=== PATIENT | female | born 1970 | race Caucasian/White ===

== ENCOUNTER 2019-12-29 08:54 | Day surgery (SDC) | payer MEDICARE, MEDICAID ==
[2019-12-29] MEDS ORDERED: Propofol 200 MG/20 ML SDV ONE (09:19)
[2019-12-29] MEDS ORDERED: fentaNYL 100 MCG/2 ML SDV ONE (09:19)
[2019-12-29] MEDS ORDERED: Midazolam 1 MG/ML 2 ML SDV ONE (09:20)
[2019-12-29] MEDS ORDERED: Sodium Chloride 0.9% 1,000 ML IV SCH (09:45)
--- NOTE | 2020-01-01 08:43 | OR ---
DATE OF PROCEDURE: 12/29/2019 SURGEON: Kaleb Marino MD PROCEDURE: Colonoscopy. PREOPERATIVE DIAGNOSIS: Positive Cologuard test. POSTOPERATIVE DIAGNOSIS: Positive Cologuard test. FINDINGS: 1. Ascending colon polyp, approximately 1 cm, completely removed using hot snare wire device. 2. Descending colon polyp #1, completely removed using cold biopsy forceps. 3. Descending colon polyp #2, completely removed using cold biopsy forceps. COMPLICATIONS: None. EDUCATIONAL DIRECTOR: None. ANESTHESIA: MAC. RISKS: Risks, benefits, alternatives, and limitations including, but not limited to infection, bleeding, and perforation were explained to the patient, who wished to proceed. PROCEDURE IN DETAIL: The patient was placed in left lateral decubitus position. Digital rectal exam was performed without abnormality. Scope was introduced and advanced atraumatically to the ileocecal valve. A photo was taken. The scope was brought through the ascending colon, approximately 1 cm polyp was identified and completely removed using the hot snare wire device. No abnormal bleeding was noted. The scope was brought back through the remainder of the colon, and descending colon polyps #1 and #2 were completely removed using the cold biopsy snare device. No abnormalities on retroflexion. The patient tolerated the procedure well. Kaleb Marino MD /[id number]
== END 2019-12-29 13:08 | disposition home or self-care (01) ==
LOC: JP.SDS 08:54
PROVIDERS: ATTEND Surgery
DX: D12.2 Benign neoplasm of ascending colon (principal); D12.4 Benign neoplasm of descending colon; F17.200 Nicotine dependence, unspecified, uncomplicated; K21.9 Gastro-esophageal reflux disease without esophagitis; E11.9 Type 2 diabetes mellitus without complications
CPT/HCPCS: 45380; 45385; J2250; J2704; J3010; J7030; 88305

== ENCOUNTER 2020-12-27 10:02 | Emergency (ER) | payer MEDICARE, MEDICAID ==
[2020-12-27] MEDS ORDERED: HYDROmorphone 1 MG/ML Syringe IVPUSH ONE ×3 (10:03→12:07)
[2020-12-27] MEDS ORDERED: Ketorolac 30 MG/ML SDV IVPUSH ONE (10:03)
[2020-12-27] MEDS ORDERED: Lactated Ringers 1,000 ML IV ONE (10:04)
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
[2020-12-27] MEDS ORDERED: Ondansetron 4 MG/2 ML SDV IVPUSH ONE (10:53)
[2020-12-27] MEDS ORDERED: Lactated Ringers 500 ML IV ONE (11:43)
[2020-12-27] MEDS ORDERED: Bacitracin Oint 1 GM U/D Packet TOP ONE (12:08)
== END 2020-12-27 13:10 | disposition home or self-care (01) ==
LOC: JP.ED 10:02
DX: T20.20XA Burn of second degree of head, face, and neck, unspecified site, initial encounter (principal); M19.90 Unspecified osteoarthritis, unspecified site; E11.9 Type 2 diabetes mellitus without complications; Z79.82 Long term (current) use of aspirin; Z79.899 Other long term (current) drug therapy; X08.8XXA Exposure to other specified smoke, fire and flames, initial encounter; Y92.009 Unspecified place in unspecified non-institutional (private) residence as the place of occurrence of the external cause
CPT/HCPCS: 16020; 96374; 96375; 96376; 99283; J1170; J1885; J2405; J7120; 99284

== ENCOUNTER 2021-02-23 11:03 | Emergency (ER) | payer MEDICARE, MEDICAID ==
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
[2021-02-23] MEDS ORDERED: Ketorolac 30 MG/ML SDV IM ONE (11:56)
[2021-02-23] MEDS ORDERED: Albuterol 8 GM Inhaler INH ONE (11:59)
== END 2021-02-23 13:48 ==
LOC: JP.ED 11:03
DX: S16.1XXA Strain of muscle, fascia and tendon at neck level, initial encounter (principal); S29.012A Strain of muscle and tendon of back wall of thorax, initial encounter; U07.1 COVID-19; J40 Bronchitis, not specified as acute or chronic; E11.9 Type 2 diabetes mellitus without complications; F43.9 Reaction to severe stress, unspecified; Z79.899 Other long term (current) drug therapy; Z79.82 Long term (current) use of aspirin; X58.XXXA Exposure to other specified factors, initial encounter
CPT/HCPCS: 94640; 96372; 99285; A9270; J1885; U0002

== ENCOUNTER 2021-03-14 14:31 | Emergency (ER) | payer MEDICARE, MEDICAID ==
--- NOTE | 2021-03-14 15:43 | EDM.PDOC ---
ED HPI GENERAL MEDICAL PROBLEM - General Chief Complaint: Neck Problem Stated Complaint: NECK PAIN/CRAMPING ARMS Time Seen by Provider: 03/14/21 15:43 Source of Information: Reports: Patient, RN Notes Reviewed History Limitations: Reports: No Limitations - History of Present Illness INITIAL COMMENTS - FREE TEXT/NARRATIVE: Luisa presents today for ongoing neck pain, sore muscles and soreness to her upper back. She also states she is homeless, its is raining outside and she would like some food. She denies any new injury or trauma. She denies fever, chills, cough, headache, nausea, vomiting, diarrhea or constipation. - Related Data Allergies Allergy/AdvReac Type Severity Reaction Status Date / Time No Known Allergies Allergy Verified 03/14/21 14:48 Home Meds: Home Meds Aspirin [Halfprin] 81 mg PO DAILY 12/27/19 [History] Calcium Carbonate 600 mg PO DAILY 12/27/19 [History] Cyanocobalamin (Vitamin B-12) [Vitamin B-12] 1,000 mcg PO DAILY 12/27/19 [History] Ferrous Sulfate 325 mg PO DAILY 12/27/19 [History] Mirtazapine [Remeron] 15 mg PO BEDTIME 12/27/19 [History] Omeprazole 20 mg PO BEDTIME 12/27/19 [History] Sennosides [Senna Lax] 2 tab PO DAILY 12/27/19 [History] Therapeutic Multi Vitamin 1 tab PO BID 12/27/19 [History] Vitamin B Complex [B Complex] 1 each PO DAILY 12/27/19 [History] atorvaSTATin [Lipitor] 20 mg PO BEDTIME 12/27/19 [History] hydrOXYzine HCL [Atarax] 25 - 50 mg PO Q8H PRN 12/27/19 [History] metFORMIN [Glucophage] 500 mg PO WITHDINNER 12/27/19 [History] traZODone 100 mg PO BEDTIME 12/27/19 [History] valACYclovir HCl [Valtrex] 500 mg PO DAILY 12/27/19 [History] Acamprosate [Campral] 2 tab PO TID 12/27/20 [History] Vortioxetine Hydrobromide [Trintellix] 1 tab PO DAILY 12/27/20 [History] Albuterol Sulfate [Albuterol Sulfate Hfa] 18 gm IH Q4H PRN 30 Days #1 [email or web address] 02/23/21 [Rx] Past Medical History Cardiovascular History: Reports: High Cholesterol Respiratory History: Reports: Bronchitis, Recurrent Musculoskeletal History: Reports: Arthritis Psychiatric History: Reports: Anxiety, Depression Endocrine/Metabolic History: Reports: Diabetes, Type II - Infectious Disease History Infectious Disease History: Reports: Chicken Pox - Past Surgical History GI Surgical History: Reports: Bariatric Procedure Female Surgical History: Reports: Hysterectomy Endocrine Surgical History: Reports: None Musculoskeletal Surgical History: Reports: None Social & Family History - Family History Cardiac: Reports: Arrhythmia, Heart Failure Endocrine/Metabolic: Reports: Diabetes, type II Oncologic: Reports: Colon, Prostate - Tobacco Use Tobacco Use Status *Q: Current Every Day Tobacco User Years of Tobacco use: 35 Packs/Tins Daily: 1 - Caffeine Use Caffeine Use: Reports: Coffee, Energy Drinks, Soda - Recreational Drug Use Recreational Drug Use: Yes Drug Use in Last 12 Months: Yes Recreational Drug Type: Reports: Marijuana/Hashish Recreational Drug Use Frequency: Rarely ED ROS GENERAL - Review of Systems Review Of Systems: See Below Constitutional: Reports: No Symptoms HEENT: Reports: No Symptoms Respiratory: Reports: No Symptoms Cardiovascular: Reports: No Symptoms Endocrine: Reports: No Symptoms GI/Abdominal: Reports: No Symptoms : Reports: No Symptoms Musculoskeletal: Reports: Neck Pain (pain and soreness going to her upper back. ) Skin: Reports: No Symptoms Neurological: Denies: Confusion, Dizziness, Headache, Numbness, Paresthesia, Seizure, Syncope, Tingling, Tremors, Trouble Speaking, Difficulty Walking, Weakness, Gait Disturbance Psychiatric: Reports: No Symptoms Hematologic/Lymphatic: Reports: No Symptoms Immunologic: Reports: No Symptoms ED EXAM, UPPER BACK/NECK PAIN - Physical Exam Exam: See Below Exam Limited By: No Limitations General Appearance: Alert, WD/WN, No Apparent Distress, Other Eye Exam: Bilateral Eye: Normal Inspection, PERRL Ears Exam: Normal External Exam, Normal Canal, Hearing Grossly Normal, Normal TM s Nose Exam: Normal Mucousa, No Blood. No: Nasal Deformity, Nasal Discharge, Nasal Swelling, Nasal Tenderness, Nasal Ecchymosis Throat/Mouth Exam: Normal Inspection, Normal Lips, Normal Gums, Normal Oropharynx, Normal Voice, No Airway Compromise, Dental Decay Head Exam: Atraumatic, Normocephalic. No: Scalp Swelling, Scalp Hematoma, Scalp Tenderness, Facial Abrasions, Facial Ecchymosis, Facial Swelling, Facial Tenderness, Sinus Tenderness Neck Exam: Full Range of Motion, Normal Alignment, Normal Inspection, Muscle Spasm (to right cervical muscles), Paraspinous Muscle Tender. No: Spinous Processes Tender Nexus Criteria: No: Posterior, Midline Cervical Tenderness, Evidence of Intoxication, Altered Level of Consciousness, Focal Neurological Deficit, Painful Distraction Injuries Cardiovascular/Respiratory: Regular Rate, Rhythm, No M/R/G, Normal Peripheral Pulses, Normal Breath Sounds, No Respiratory Distress. No: Tachycardia, Murmur, Rales, Rhonchi, Accessory Muscle uUe, Wheezing GI/Abdominal: Normal Bowel Sounds, Soft, Non-Tender, No Organomegaly, No Distention, No Mass (Female) Exam: Deferred Rectal (Female) Exam: Deferred Back Exam: Normal Inspection, Full Range of Motion, Muscle Spasm (right trapezius). No: CVA Tenderness (R), CVA Tenderness (L), Paraspinal Tenderness, Vertebral Tenderness Extremities: Normal Inspection, Normal Range of Motion, Non-Tender, No Pedal Edema, Normal Capillary Refill Neurologic: No Motor/Sensory Deficits, Alert, Normal Mood/Affect, Oriented x 3 DTR: 4+: Bicep (R), Bicep (L), Patella (R), Patella (L) Psychiatric: Normal Affect, Normal Mood Skin Exam: Normal Color, Warm/Dry Lymphatic: No Adenopathy Course - Vital Signs Last Recorded V/S: Last Vital Signs Temp 36.1 C 03/14/21 14:59 Pulse 75 03/14/21 14:59 Resp 18 03/14/21 14:59 BP 128/87 03/14/21 14:59 Pulse Ox 100 03/14/21 14:59 - Orders/Labs/Meds Meds: Medications Discontinued Medications Generic Name Dose Route Start Last Admin Trade Name Freq PRN Reason Stop Dose Admin Ketorolac Tromethamine 30 mg 03/14/21 16:01 03/14/21 16:18 Ketorolac 30 Mg/Ml Sdv IM 03/14/21 16:02 30 mg ONETIME ONE Administration - Re-Assessments/Exams Free Text/Narrative Re-Assessment/Exam: 03/14/21 16:03 Discussed care of chronic pain with patient. She is advised to follow up with her primary, continue her physical therapy. We will try use fo baclofen and diclofenac for her pain. Luisa requested a meal tray stating she was hungry. She was advised we could provide a snack, she chose pudding, applesauce and water. Patient advised to work with local housing for an apartment. Patient verbalized understanding. Departure - Departure Time of Disposition: 16:13 Disposition: Home, Self-Care 01 Condition: Good Clinical Impression: Muscle strain of upper back, Neck muscle strain - Discharge Information Instructions: Muscle Strain, [id number] Referrals: PCP,None [Primary Care Provider] - Forms: ED Department Discharge Additional Instructions: You have been evaluated and treated for ongoing and chronic neck and upper back pain. Stop use of methocarbamol and ibuprofen. Start use of baclofen 10 mg by mouth every 8 hours while awake for muscle spasms/pain. Take diclofenac 50mg by mouth in the morning and prior to bed for pain. You can also take acetaminophen (tylenol) 650mg by mouth three to four times a day for pain. Continue your use of topicals as directed. Follow up with your primary in 7 to 10 days for a recheck, you may need to see pain management or neurology if this is appropriate. Return for any worsening, issues or concerns. Sepsis Event Note (ED) - Evaluation Sepsis Screening Result: No Definite Risk - Focused Exam Vital Signs: Vital Signs Temp Pulse Resp BP Pulse Ox 03/14/21 14:59 36.1 C 75 18 128/87 100 03/14/21 14:46 36.1 C 75 18 128/87 100 - Assessment/Plan Assessment:: Muscle strain of upper back, Neck muscle strain Plan: Patient evaluated and treated for ongoing and chronic neck and upper back pain. Stop use of methocarbamol and ibuprofen. Start use of baclofen 10 mg by mouth every 8 hours while awake for muscle spasms/pain. Take diclofenac 50mg by mouth in the morning and prior to bed for pain. You can also take acetaminophen (tylenol) 650mg by mouth three to four times a day for pain. Continue your use of topicals as directed. Follow up with your primary in 7 to 10 days for a recheck, you may need to see pain management or neurology if this is appropriate. Return for any worsening, issues or concerns.
[2021-03-14] MEDS ORDERED: Ketorolac 30 MG/ML SDV IM ONE (16:01)
== END 2021-03-14 16:21 | disposition home or self-care (01) ==
LOC: JP.ED 14:31
DX: S16.1XXA Strain of muscle, fascia and tendon at neck level, initial encounter (principal); S29.012A Strain of muscle and tendon of back wall of thorax, initial encounter; E78.00 Pure hypercholesterolemia, unspecified; E11.9 Type 2 diabetes mellitus without complications; Z72.0 Tobacco use; Z79.82 Long term (current) use of aspirin; Z79.899 Other long term (current) drug therapy; X58.XXXA Exposure to other specified factors, initial encounter
CPT/HCPCS: 96372; 99283; J1885

== ENCOUNTER 2022-02-18 13:55 | Emergency (ER) | payer MEDICARE, MEDICAID ==
[2022-02-18] MEDS ORDERED: Sodium Chloride 0.9% 10 ML Syringe FLUSH PRN (17:18)
[2022-02-18] MEDS ORDERED: Lactated Ringers 1,000 ML IV SCH (17:30)
[2022-02-18 18:06] LABS: ESTIMATED GFR 67 mL/min (>60); TROPONIN I HIGH SENSITIVITY 6.3 pg/mL (<=60.3)
== END 2022-02-18 18:39 | disposition home or self-care (01) ==
LOC: JP.ED 13:55
DX: R42 Dizziness and giddiness (principal); E78.00 Pure hypercholesterolemia, unspecified; E11.9 Type 2 diabetes mellitus without complications; F17.210 Nicotine dependence, cigarettes, uncomplicated; Z79.82 Long term (current) use of aspirin; Z79.899 Other long term (current) drug therapy
CPT/HCPCS: 36415; 71045; 80053; 80178; 83605; 84484; 85025; 85379; 93005; 96360; 99284; J3490; J7120; 93010; 99283

== ENCOUNTER 2024-03-30 09:06 | Day surgery (SDC) | payer MEDICARE, MEDICAID ==
[2024-03-30] MEDS ORDERED: Propofol 200 MG/20 ML SDV ONE ×2 (09:44→10:55)
[2024-03-30] MEDS ORDERED: fentaNYL 50 MCG/ML SDV ONE (09:44)
[2024-03-30] MEDS: Sodium Chloride 0.9% 1,000 ML IV SCH (09:49)
== END 2024-03-30 12:25 | disposition home or self-care (01) ==
LOC: JP.SDS 09:06
PROVIDERS: ATTEND Surgery
DX: Z12.11 Encounter for screening for malignant neoplasm of colon (principal); D12.2 Benign neoplasm of ascending colon; D12.3 Benign neoplasm of transverse colon; K63.5 Polyp of colon; N18.9 Chronic kidney disease, unspecified; F17.210 Nicotine dependence, cigarettes, uncomplicated
CPT/HCPCS: 00811; 45380; 45385; 45390; 88305; J2704; J3010; J7030

== ENCOUNTER 2025-04-06 06:15 | Day surgery (SDC) | payer MEDICARE, MEDICAID ==
[2025-04-06] MEDS: Lactated Ringers 1,000 ML IV SCH (07:01)
[2025-04-06] MEDS ORDERED: fentaNYL 100 MCG/2 ML SDV ONE (07:36)
[2025-04-06] MEDS ORDERED: Propofol 200 MG/20 ML SDV ONE ×2 (07:36→08:11)
[2025-04-06] MEDS ORDERED: Ondansetron 4 MG/2 ML SDV ONE (07:48)
== END 2025-04-06 09:39 | disposition home or self-care (01) ==
LOC: JP.SDS 06:15
PROVIDERS: ATTEND Surgery
DX: Z12.11 Encounter for screening for malignant neoplasm of colon (principal); D12.2 Benign neoplasm of ascending colon; D12.3 Benign neoplasm of transverse colon; E78.00 Pure hypercholesterolemia, unspecified; E11.9 Type 2 diabetes mellitus without complications; F32.A Depression, unspecified; F41.9 Anxiety disorder, unspecified; F17.200 Nicotine dependence, unspecified, uncomplicated; Z79.84 Long term (current) use of oral hypoglycemic drugs; Z79.899 Other long term (current) drug therapy
CPT/HCPCS: 00811; 45380; 45385; J2405; J2704; J3010; J7120